=== PATIENT | male | born 1935 | race Caucasian/White ===

== ENCOUNTER 2020-02-02 08:00 | Outpatient (CLI) | payer MEDICARE ==
--- NOTE | 2020-02-02 19:57 | XRAY Report ---
PROCEDURE: Skull 2 View INDICATIONS: CONTUSION OF OTHER PART OF HEAD TECHNIQUE: 3 view(s) of the skull acquired. COMPARISON: None FINDINGS: Bones: No fractures. No suspicious bony lesions. Visualized sinuses appear clear. Soft tissues: No soft tissue calcifications. No suspicious soft tissue densities. IMPRESSION: No fracture or underlying foreign body. Reviewed by: Carey May MD on 02/02/2020 7:56 PM PDT Approved by: Carey May MD on 02/02/2020 7:56 PM PDT Station ID: [id number]
== END 2020-02-02 23:59 | disposition home or self-care (01) ==
LOC: DI.S 08:00
PROVIDERS: ATTEND Physician Assistant Medical
DX: S00.83XA Contusion of other part of head, initial encounter (principal)
CPT/HCPCS: 70250

== ENCOUNTER 2020-02-02 17:15 | Outpatient (CLI) | payer MEDICARE | END 2020-02-02 17:16 | disposition EMS.NT | LOC: EMS 17:15 | PROVIDERS: ATTEND Surgery | DX: S01.81XA Laceration without foreign body of other part of head, initial encounter (principal); W10.8XXA Fall (on) (from) other stairs and steps, initial encounter; Y92.511 Restaurant or cafe as the place of occurrence of the external cause ==

== ENCOUNTER 2021-01-28 07:00 | Outpatient (CLI) | payer MEDICARE ==
[2021-01-28 19:54] LABS: BILIRUBIN,URINE NEGATIVE (NEGATIVE); GLUCOSE, URINE (UA) NEGATIVE (NEGATIVE); KETONES,URINE (UA) NEGATIVE (NEGATIVE); LEUKOCYTE ESTERASE, URINE NEGATIVE (NEGATIVE); NITRITE,URINE NEGATIVE (NEGATIVE); OCCULT BLOOD,URINE NEGATIVE (NEGATIVE); PROTEIN,URINE NEGATIVE (NEGATIVE); UROBILINOGEN,URINE 0.2 (NORMAL) E.U./dL (NORMAL)
[2021-01-28 20:01] LABS: BACTERIA,URINE None Seen /HPF (None Seen); CLARITY,URINE CLEAR (CLEAR); RBC,URINE 0-5 /HPF (0-5); SQUAMOUS EPITHELIAL CELL,UR RARE Squamous (<= Few); WBC,URINE 0-3 /HPF (0-3)
== END 2021-01-28 23:59 | disposition home or self-care (01) ==
LOC: LAB 07:00
PROVIDERS: ATTEND Physician Assistant Medical
DX: R30.0 Dysuria (principal)
CPT/HCPCS: 81001; 87086

== ENCOUNTER 2022-12-14 08:56 | Emergency (ER) | payer MEDICARE ==
[2022-12-14 09:15] VITALS: BP 134/62; O2SAT 99
--- OUTSIDE RECORDS SUMMARY | 2022-12-14 09:34 | EXTERNAL MEDICAL SUMMARY RPT | Continuity of Care Document ---
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 Name Role Phone Unavailable Unavailable Unavailable Karen Ramesh, Dev Unavailable Unavailable Medications date description facility 2022-12-05 00:00 vitamins a,c,f-uoca-znmeey [facility] 2022-12-08 00:00 vitamins a,c,z-wjqt-rhoytq [facility] 2022-12-05 00:00 vitamins a,c,b-vohv-kahuuu [facility] 2022-12-08 00:00 vitamins a,c,o-fjuz-zyktfs [facility] 2022-12-05 00:00 vitamins a,c,f-dzcz-wtbnti [facility] 2022-12-08 00:00 vitamins a,c,d-zrrj-fbzacb [facility] 2022-12-05 00:00 methocarbamol [facility] Problems date description facility 2022-12-05 00:00 Strain of neck muscle [facility] 2022-12-05 00:00 Neck sprain [facility] 2022-12-05 00:00 Strain of muscle, fa scia and tendon at neck level, initial encounter [facility] Procedures date description facility 2022-12-05 00:00 Visit Code Hold [facility] [place] Social History date description facility 2022-12-05 00:00 Former smoker [facility] [place] Vital Signs date measurement value units 2022-12-05 00:00 BMI 26.10 kg/m2 2022-12-05 00:00 BP_diastolic 55 mmHg 2022-12-05 00:00 BP_systolic 107 mmHg 2022-12-05 00:00 heart_rate 61 /min 2022-12-05 00:00 height_metric 177.8 cm 2022-12-05 00:00 height_standard 70 in 2022-12-05 00:00 respiration_rate 15 /min 2022-12-05 00:00 temperature_metric 36.22 C 2022-12-05 00:00 temperature_standard 97.2 F 2022-12-05 00:00 weight_metric 82.21 kg 2022-12-05 00:00 weight_standard 181.25 lb
--- NOTE | 2022-12-14 09:44 | ED Physician Documentation ---
PD HPI SKIN - Stated complaint Stated Complaint: RASH ON FACE - Chief complaint Chief Complaint: General - History obtained from History obtained from: Patient - Additional information Additional information: Patient is an 87-year-old male presenting for evaluation of a rash to his face that has been there for the past 3 days. Patient reports that has been itchy and he has developed areas of crusting. He reports always having a little bit of a rash and has been told by his associate professor of law 2 to 3 months ago to use a shampoo with ketoconazole and to let this run over his face which she tried but states that it was not improving. He denies fever. No pain. He has tried Benadryl ointment also without any improvement. Review of Systems Constitutional: denies: Fever Cardiac: denies: Chest pain / pressure Respiratory: denies: Dyspnea Skin: reports: Rash PD PAST MEDICAL HISTORY - Past Medical History Cardiovascular: High cholesterol, Coronary artery disease : Benign prostate hypertrophy Other Past Medical History: insomia - Past Surgical History Past Surgical History: Yes Cardiovascular: Coronary stent - Present Medications Home Medications: Ambulatory Orders Medication Instructions Recorded Confirmed Fluticasone [Flonase] 1 sprays FILIBERTO BID PRN 12/14/22 12/14/22 Mupirocin 2% Oint [Bactroban 2% 1 applic TOP TID 5 Days #50 gm 12/14/22 Oint] Nortriptyline HCl [Pamelor] 75 mg PO DAILY 12/14/22 12/14/22 Sildenafil Citrate [Sildenafil] 20 mg PO DAILY PRN 12/14/22 12/14/22 Simvastatin [Zocor] 80 mg PO DAILY 12/14/22 12/14/22 Tamsulosin [Flomax] 0.4 mg PO DAILY 12/14/22 12/14/22 cephALEXin [Keflex] 500 mg PO Q6H #28 cap 12/14/22 methocarbamoL [Methocarbamol] 750 mg PO Q6H PRN 12/14/22 12/14/22 - Allergies Allergies/Adverse Reactions: Allergies Allergy/AdvReac Type Severity Reaction Status Date / Time No Known Drug Allergies Allergy Verified 12/14/22 09:12 - Social History Does the pt smoke?: No Smoking Status: Former smoker Does the pt drink ETOH?: Yes ETOH Use: Wine Does the pt have substance abuse?: No PD ED PE NORMAL - General General: Alert and oriented X 3, No acute distress, Well developed/nourished - HEENT HEENT: Atraumatic, PERRL, Moist mucous membranes, Pharynx benign - Neck Neck: Supple, no meningeal sign - Cardiac Cardiac: RRR - Respiratory Respiratory: No respiratory distress, Clear bilaterally - Derm Derm: Other (Erythema to forehead, tip of nose, upper lip/perioral area, chin with areas of honey colored crusting) - Neuro Neuro: Normal speech Results - Vitals Vitals: Vital Signs - 24 hr 12/14/22 09:08 Temperature 36.7 C Heart Rate 75 Respiratory 16 Rate Blood Pressure 134/62 H O2 Saturation 99 Oxygen O2 Source Room air PD Medical Decision Making - ED course ED course: Patient presenting for evaluation of a rash to his face. Patient presenting for evaluation of a rash to his face. He is well-appearing, nontoxic, afebrile with no SIRS criteria. On exam rash is concerning for impetigo. Discussed options for treatment. Patient reports having a concert he needs to be in on Thursday. Due to diffuse areas of involvement on his face will prescribe mupirocin as well as Keflex.Patient counseled on need for follow-up with his PCP or associate professor of law. He is also advised on concerning symptoms to return for. Departure - Departure Disposition: 01 Home, Self Care Clinical Impression: Impetigo Condition: Stable Instructions: Impetigo Follow-Up: Cholo Chapin [Physician No Access] - Prescriptions: Mupirocin 2% Oint [Bactroban 2% Oint] 1 applic TOP TID 5 Days #50 gm cephALEXin [Keflex] 500 mg PO Q6H #28 cap Comments: I believe your rash is related to an infection called impetigo. I am sending prescriptions for a topical and oral antibiotic to [facility] in [place]. Please make sure to use these antibiotics as directed. I would also recommend follow- up with your associate professor of law or primary care provider. If you develop worsening symptoms such as increased redness, swelling, fevers or have any new concerns please return to the emergency department. Forms: PCP List Discharge Date/Time: 12/14/22 09:53
== END 2022-12-14 09:53 | disposition home or self-care (01) ==
LOC: ED 08:56
DX: L01.00 Impetigo, unspecified (principal); Z87.891 Personal history of nicotine dependence
CPT/HCPCS: 99282; 99283

== ENCOUNTER 2023-04-14 09:50 | Outpatient (CLI) | payer MEDICARE ==
[2023-04-14 10:02] LABS: BASOPHILS % (AUTO) 0.4 %; EOSINOPHILS # (AUTO) 0.2 10^3/uL (0.0-0.7); EOSINOPHILS % (AUTO) 2.2 %; HCT - HEMATOCRIT 39.7 % (42.0-52.0); HGB - HEMOGLOBIN 12.7 g/dL (14.0-18.0); LYMPHOCYTES # (AUTO) 1.1 10^3/uL (1.5-3.5); LYMPHOCYTES % (AUTO) 15.4 %; MEAN CORPUSCULAR HEMOGLOBIN 30.8 pg (27.0-31.0); MEAN CORPUSCULAR VOLUME 96.4 fL (80.0-94.0); MEAN PLATELET VOLUME 9.6 fL (7.4-11.4); MONOCYTES # (AUTO) 0.6 10^3/uL (0.0-1.0); NEUTROPHILS # (AUTO) 5.4 10^3/uL (1.5-6.6); NEUTROPHILS % (AUTO) 73.7 %; PLT - PLATELET COUNT 236 10^3/uL (130-450); RED BLOOD COUNT 4.12 10^6/uL (4.70-6.10); RED CELL DISTRIBUTION WIDTH 13.2 % (12.0-15.0); WHITE BLOOD COUNT 7.3 x10^3/uL (4.8-10.8)
[2023-04-14 10:27] LABS: ALBUMIN 3.9 g/dL (3.2-5.5); ALBUMIN/GLOBULIN RATIO 1.3 (1.0-2.2); BILIRUBIN,TOTAL 0.7 mg/dL (0.2-1.0); CALCIUM 9.1 mg/dL (8.5-10.3); CREATININE 1.1 mg/dL (0.6-1.3); CRP - C-REACTIVE PROTEIN 2.2 mg/dL (<0.5); POTASSIUM 4.2 mmol/L (3.5-4.5); TOTAL PROTEIN 6.8 g/dL (6.4-8.9)
== END 2023-04-14 09:51 | disposition home or self-care (01) ==
LOC: LAB 09:50
PROVIDERS: ATTEND Registered Nurse
DX: R10.11 Right upper quadrant pain (principal); K21.9 Gastro-esophageal reflux disease without esophagitis
CPT/HCPCS: 36415; 80053; 83690; 85025; 86140

== ENCOUNTER 2023-04-23 13:47 | Outpatient (CLI) | payer MEDICARE ==
--- NOTE | 2023-04-23 19:30 | CT Report ---
PROCEDURE: ABDOMEN/PELVIS WO INDICATIONS: RIGHT UPPER QUAD PAIN, FLANK PAIN TECHNIQUE: A CT scan of the abdomen and pelvis was performed without the use of intravenous contrast. Oral contr ast was administered. Images were recorded and evaluated at appropriate window settings. Reformats: c oronal and sagittal. For radiation dose reduction, the following was used: automated exposure control , adjustment of mA and/or kV according to patient size. COMPARISON: None. FINDINGS: Image quality: Diagnostic. Lung bases and heart: Lung bases are clear. Heart size is normal. Mild atherosclerotic calcifications of the coronary arteries. Liver: No solid mass. Gallbladder and biliary tree: No radiopaque stones or wall thickening. No biliary dilation. Spleen: No splenomegaly. Pancreas: No pancreatic ductal dilation. No peripancreatic inflammation. Adrenals: No adrenal nodule. Kidneys and ureters: No hydronephrosis. No renal cystic lesion which requires follow up. No solid mas s. Bowel and peritoneum: Visualized stomach appears unremarkable. There are small hiatal hernia. No evid ence for small bowel obstruction. Moderate fecal material seen throughout the colon. Colonic divertic ulosis without acute diverticulitis. There is a ill-defined, irregular, spiculated/stellate mass chanelle uring approximately 6.1 x 6.2 x 7.9 cm noted in the central mesentery with associated mesenteric codey opathy and desmoid reaction. Coarse calcifications are noted internally. There appears to be tetherin g of the adjacent small bowel without evidence for obstruction. This comes in close proximity to the pancreatic head and neck without definite invasion. There is associated free fluid in the lower abdom en/pelvis. Lymph nodes: No central or retroperitoneal adenopathy. Vessels: No infrarenal aortic aneurysm. Moderate atherosclerotic vascular calcifications. PELVIS Reproductive organs: Unremarkable. Bladder: No wall thickness, accounting for underdistention. Pelvic lymph nodes: No pelvic adenopathy by size criteria. Bones: No aggressive osseous abnormality. Multilevel spondylosis of the imaged spine. No acute compre ssion fractures. Other: No significant ventral or inguinal hernia. IMPRESSION: Irregular, spiculated mesenteric mass measuring 6.1 x 6.2 x 7.9 cm with associated desmoid reaction a nd mesenteric adenopathy. Tethering of the adjacent small bowel without bowel obstruction. Immediatel y adjacent to the pancreatic head and neck without evidence for radha invasion. 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 Other consideration include sclerosing mesenteritis. Otherwise, no acute abno rmalities identified in the abdomen or pelvis. Reviewed by: Navid Cobian MD on 04/23/2023 7:28 PM PST Approved by: Navid Cobian MD on 04/23/2023 7:28 PM PST Station ID: [id number]
== END 2023-04-23 13:48 | disposition home or self-care (01) ==
LOC: DI 13:47
PROVIDERS: ATTEND Physician Assistant Medical
DX: R19.09 Other intra-abdominal and pelvic swelling, mass and lump (principal); R10.11 Right upper quadrant pain

== ENCOUNTER 2023-05-06 10:16 | Emergency (ER) | payer MEDICARE ==
--- NOTE | 2023-05-06 12:01 | ED Physician Documentation ---
PD HPI ABD PAIN - Stated complaint Stated Complaint: GI - Chief complaint Chief Complaint: Abd Pain - History obtained from History obtained from: Patient - Additional information Additional information: Patient is an 88-year-old male presenting for evaluation of difficulty with bowel movements for the past 5 days. He was diagnosed with abdominal mass at the end of March and is awaiting a referral for a biopsy through [facility].He has tried MiraLAX, Colace and an enema last night without any improvement. He has had 3 doses of MiraLAX over the past 5 days. He reports no nausea or vomiting. He is tolerating p.o. He is passing gas. Denies history of prior abdominal surgeries. Reports a dull discomfort in the lower abdomen and feeling like he has stool in the rectum.Patient called his primary care provider today regarding his constipation was told to come to the emergency department for evaluation. Denies fever, chest pain or shortness of air. Review of Systems Constitutional: denies: Fever Cardiac: denies: Chest pain / pressure Respiratory: denies: Dyspnea GI: reports: Abdominal Pain, Constipation. denies: Nausea, Vomiting : denies: Dysuria PD PAST MEDICAL HISTORY - Past Medical History Past Medical History: Yes Cardiovascular: High cholesterol, Coronary artery disease : Benign prostate hypertrophy - Past Surgical History Past Surgical History: Yes Cardiovascular: Coronary stent - Present Medications Home Medications: Ambulatory Orders Medication Instructions Recorded Confirmed Nortriptyline HCl [Pamelor] 75 mg PO DAILY 12/14/22 05/06/23 Sildenafil Citrate [Sildenafil] 100 mg PO DAILY PRN 12/14/22 05/06/23 Simvastatin [Zocor] 80 mg PO DAILY 12/14/22 05/06/23 Tamsulosin [Flomax] 0.4 mg PO DAILY 12/14/22 05/06/23 Aspirin [[place] Aspirin] 81 mg PO DAILY 05/06/23 05/06/23 Magnesium Citrate [Citrate of 296 ml PO DAILY PRN #296 ml 05/06/23 Magnesia] Pantoprazole [Protonix] 40 mg PO DAILY 05/06/23 05/06/23 - Allergies Allergies/Adverse Reactions: Allergies Allergy/AdvReac Type Severity Reaction Status Date / Time No Known Drug Allergies Allergy Verified 05/06/23 10:23 - Social History Does the pt smoke?: No Smoking Status: Never smoker Does the pt drink ETOH?: Yes Does the pt have substance abuse?: No PD ED PE NORMAL - General General: Alert and oriented X 3, No acute distress, Well developed/nourished - HEENT HEENT: Atraumatic, Moist mucous membranes, Pharynx benign - Neck Neck: Supple, no meningeal sign - Cardiac Cardiac: RRR, No murmur - Respiratory Respiratory: No respiratory distress, Clear bilaterally - Abdomen Abdomen: Normal bowel sounds, Soft, Non tender, Non distended - Rectal Rectal: Other (Chaperoned by Queta, no stool in rectum) - Derm Derm: Warm and dry - Neuro Neuro: Normal speech Results - Vitals Vitals: Vital Signs - 24 hr 05/06/23 05/06/23 05/06/23 10:19 12:23 16:07 Temperature 36.1 C L Heart Rate 71 72 83 Respiratory 15 14 18 Rate Blood Pressure 128/49 L 132/84 H 144/70 H O2 Saturation 100 98 98 Oxygen O2 Source Room air - Labs Labs: Laboratory Tests 05/06/23 05/06/23 11:45 11:45 WBC 6.8 RBC 3.78 L Hgb 11.8 L Hct 36.5 L MCV 96.6 H MCH 31.2 H MCHC 32.3 RDW 12.5 Plt Count 245 MPV 10.3 Neut # (Auto) 5.3 Lymph # (Auto) 0.7 L [place] # (Auto) 0.6 Eos # (Auto) 0.1 Baso # (Auto) 0.0 Absolute Nucleated RBC 0.00 Nucleated RBC % 0.0 Sodium 139 Potassium 4.3 Chloride 106 Carbon Dioxide 26 Anion Gap 7.0 BUN 20 Creatinine 0.9 Estimated GFR (MDRD) 79 L Glucose 116 H Calcium 8.8 Total Bilirubin 0.5 AST 21 ALT 12 Alkaline Phosphatase 82 Total Protein 6.5 Albumin 3.8 Globulin 2.7 Albumin/Globulin Ratio 1.4 Lipase 183 H PD Medical Decision Making - ED course Complexity details: reviewed results, re-evaluated patient, d/w patient ED course: Patient is an 88-year-old male with recent diagnosis of an abdominal mass that is awaiting further workup presenting for evaluation of constipation for the last 5 days. His abdominal exam is benign but he does report having a discomfort in the lower abdomen that makes him feel like he needs to have a bowel movement. There is no stool in the rectum. Therefore based on this history I did obtain labs and imaging. Imaging shows interval increase in the size of the mass but no signs of a bowel obstruction. Again patient's abdominal exam here is benign. He has tried MiraLAX, Colace, and enema without improvement at home. Will give trial of magnesium citrate. He is advised that his mass has increased and again that he needs close follow-up to determine the next steps. He was in touch with his PCP today who was planning on following back up on the referral that she had already placed. Patient is counseled on concerning symptoms to return for. 1515 - Updated the patient that there was a delay in CT being read. I spoke to the radiologist and apparently there was an issue with images being transferred from the tech to the radiology screening. Radiologist is working on getting this read to soon as possible. I updated the patient regarding the delay. He is resting comfortably with no complaints. 1540 - I spoke with the reading radiologist, Dr. Isaacs. I asked him to look at the patient's CT scan from 1228 as does not appear that today's images were compared with recent CT scan. Asked for comparison between the 2 images to see what was different today as the two reports differ in their descriptions of the mass. He states that the only thing different today is that to the mass is slightly larger. Departure - Departure Disposition: 01 Home, Self Care Clinical Impression: Constipation, Abdominal mass Condition: Stable Instructions: ED Constipation Follow-Up: Gaviota De Jesus MD [Primary Care Provider] - Prescriptions: Magnesium Citrate [Citrate of Magnesia] 296 ml PO DAILY PRN #296 ml PRN Reason: Constipation Comments: Your CT scan again shows your abdominal mass which is slightly increased in size. Please call Dr. De Jesus's office tomorrow to we can follow-up on your referral as you do need further evaluation of this mass to determine the next steps. At this time there is no signs of a bowel obstruction. I have sent a prescription for magnesium citrate to [facility] in [place]. Continue with the MiraLAX and Colace as needed for constipation. Return if you develop symptoms such as abdominal pain, vomiting. Forms: PCP List Discharge Date/Time: 05/06/23 16:16
[2023-05-06 12:18] LABS: ALBUMIN 3.8 g/dL (3.2-5.5); BASOPHILS % (AUTO) 0.6 %; EOSINOPHILS # (AUTO) 0.1 10^3/uL (0.0-0.7); EOSINOPHILS % (AUTO) 1.5 %; HCT - HEMATOCRIT 36.5 % (42.0-52.0); HGB - HEMOGLOBIN 11.8 g/dL (14.0-18.0); LYMPHOCYTES # (AUTO) 0.7 10^3/uL (1.5-3.5); LYMPHOCYTES % (AUTO) 10.4 %; MEAN CORPUSCULAR HEMOGLOBIN 31.2 pg (27.0-31.0); MEAN CORPUSCULAR HGB CONC 32.3 g/dL (32.0-36.0); MEAN CORPUSCULAR VOLUME 96.6 fL (80.0-94.0); MEAN PLATELET VOLUME 10.3 fL (7.4-11.4); MONOCYTES # (AUTO) 0.6 10^3/uL (0.0-1.0); MONOCYTES % (AUTO) 8.7 %; NEUTROPHILS # (AUTO) 5.3 10^3/uL (1.5-6.6); NEUTROPHILS % (AUTO) 78.4 %; PLT - PLATELET COUNT 245 10^3/uL (130-450); RED BLOOD COUNT 3.78 10^6/uL (4.70-6.10); RED CELL DISTRIBUTION WIDTH 12.5 % (12.0-15.0); WHITE BLOOD COUNT 6.8 x10^3/uL (4.8-10.8)
[2023-05-06 12:19] LABS: ALBUMIN/GLOBULIN RATIO 1.4 (1.0-2.2); BILIRUBIN,TOTAL 0.5 mg/dL (0.2-1.0); CALCIUM 8.8 mg/dL (8.5-10.3); CREATININE 0.9 mg/dL (0.6-1.3); POTASSIUM 4.3 mmol/L (3.5-4.5); TOTAL PROTEIN 6.5 g/dL (6.4-8.9)
[2023-05-06] MEDS ORDERED: iohexoL-300 100 ML VIAL ONE (12:42)
[2023-05-06] MEDS: SODIUM CHLORIDE 0.9% 1,000 ML IV STA (13:00)
[2023-05-06] MEDS: iohexoL-300 100 ML VIAL IVP ONE (13:37)
[2023-05-06 13:51] VITALS: O2SAT 98
--- NOTE | 2023-05-06 15:27 | CT Report ---
PROCEDURE: Abdomen/Pelvis W INDICATIONS: abd mass/pain/constipation CONTRAST: Omni 300 100ml TECHNIQUE: After the administration of intravenous contrast, a CT scan of the abdomen and pelvis was performed. Images were recorded and evaluated at appropriate window settings. Reformats: coronal and sagittal. F or radiation dose reduction, the following was used: automated exposure control, adjustment of mA and /or kV according to patient size. COMPARISON: None. FINDINGS: Image quality: Excellent. Lung bases and heart: Unremarkable. Liver: No solid mass. Gallbladder and biliary tree: Within normal limits Spleen: No splenomegaly. Pancreas: No pancreatic ductal dilation. There is an exophytic low density mass involving the pancrea tic neck and uncinate process, measuring roughly 80 mm transverse by 80 mm craniocaudal by 16 mm ante roposterior. The mass encases the confluence of the superior mesenteric vein and portal vein, and occ ludes the superior mesenteric vein. The mass completely encases the superior mesenteric artery as wel l as several of its proximal branches. The mass partially encases the third portion of the duodenum. Adrenals: No adrenal nodule. Kidneys and ureters: No hydronephrosis. No renal cystic lesion which requires follow up. No solid mas s. Bowel and peritoneum: No bowel distension. Small amount of free fluid in the pelvis is present. Lymph nodes: Multiple pathologically enlarged lymph nodes within the mesenteric root are present, pre dominantly surrounding the above-described mass. Vessels: No infrarenal aortic aneurysm. Mesenteric-portal collateral vessels are present. PELVIS Reproductive organs: Unremarkable. Bladder: No abnormal wall thickening, accounting for underdistention. Pelvic lymph nodes: No pelvic adenopathy by size criteria. Bones: No aggressive osseous abnormality. Other: No significant ventral or inguinal hernia. IMPRESSION: 1. 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 2. Small amount of ascites. 3. Mesenteric joellen metastases. Reviewed by: Trish Bautista MD on 05/06/2023 3:26 PM PST Approved by: Trish Bautista MD on 05/06/2023 3:26 PM PST Station ID: [id number]
[2023-05-06 16:14] VITALS: BP 144/70
== END 2023-05-06 16:16 | disposition home or self-care (01) ==
LOC: ED 10:16
DX: K59.00 Constipation, unspecified (principal); R19.00 Intra-abdominal and pelvic swelling, mass and lump, unspecified site
CPT/HCPCS: 36415; 74177; 80053; 83690; 85025; 99284; Q9967

== ENCOUNTER 2023-05-07 23:04 | Outpatient (CLI) | payer MEDICARE | END 2023-05-07 23:05 | disposition critical access hospital (66) | LOC: EMS 23:04 | DX: R11.2 Nausea with vomiting, unspecified (principal); M54.6 Pain in thoracic spine | CPT/HCPCS: A0425; A0427 ==

== ENCOUNTER 2023-05-07 23:39 | Emergency (ER) | payer MEDICARE ==
[2023-05-07] MEDS ORDERED: SODIUM CHLORIDE 0.9% 500 ML IV STA (23:44)
[2023-05-08 00:02] LABS: BASOPHILS % (AUTO) 0.4 %; EOSINOPHILS # (AUTO) 0.1 10^3/uL (0.0-0.7); EOSINOPHILS % (AUTO) 0.7 %; HCT - HEMATOCRIT 39.1 % (42.0-52.0); HGB - HEMOGLOBIN 12.6 g/dL (14.0-18.0); LYMPHOCYTES # (AUTO) 0.9 10^3/uL (1.5-3.5); LYMPHOCYTES % (AUTO) 10.6 %; MEAN CORPUSCULAR HEMOGLOBIN 30.8 pg (27.0-31.0); MEAN CORPUSCULAR HGB CONC 32.2 g/dL (32.0-36.0); MEAN CORPUSCULAR VOLUME 95.6 fL (80.0-94.0); MEAN PLATELET VOLUME 9.6 fL (7.4-11.4); MONOCYTES # (AUTO) 0.6 10^3/uL (0.0-1.0); MONOCYTES % (AUTO) 7.4 %; NEUTROPHILS # (AUTO) 6.5 10^3/uL (1.5-6.6); NEUTROPHILS % (AUTO) 80.7 %; PLT - PLATELET COUNT 268 10^3/uL (130-450); RED BLOOD COUNT 4.09 10^6/uL (4.70-6.10); RED CELL DISTRIBUTION WIDTH 12.5 % (12.0-15.0); WHITE BLOOD COUNT 8.1 x10^3/uL (4.8-10.8)
[2023-05-08] MEDS ORDERED: ONDANSETRON 4 MG/2 ML VIAL IVP STA (00:13)
[2023-05-08] MEDS ORDERED: FAMOTIDINE 20 MG/2 ML VIAL IVP STA (00:13)
--- NOTE | 2023-05-08 00:13 | ED Physician Documentation ---
History of Present Illness - Stated complaint Stated Complaint: N/V - Chief complaint Chief Complaint: General - History obtained from History obtained from: Patient - Additonal information Additional information: 88yM with pmh htn, CT s/p LAD stent, p/w several episodes of nbnb n/v since 6pm. also with subjective chills. denies diarrhea or abdominal pain. denies eating abnormal or questionable food. unsure about sick contacts. Review of Systems Constitutional: reports: Chills, Myalgias. denies: Fever Throat: denies: Sore throat Cardiac: denies: Chest pain / pressure Respiratory: denies: Dyspnea GI: reports: Nausea, Vomiting. denies: Abdominal Pain PD PAST MEDICAL HISTORY - Past Medical History Past Medical History: Yes Cardiovascular: High cholesterol, Coronary artery disease : Benign prostate hypertrophy - Past Surgical History Past Surgical History: Yes Cardiovascular: Coronary stent - Present Medications Home Medications: Ambulatory Orders Medication Instructions Recorded Confirmed Nortriptyline HCl [Pamelor] 75 mg PO DAILY 12/14/22 05/07/23 Sildenafil Citrate [Sildenafil] 100 mg PO DAILY PRN 12/14/22 05/07/23 Simvastatin [Zocor] 80 mg PO DAILY 12/14/22 05/07/23 Tamsulosin [Flomax] 0.4 mg PO DAILY 12/14/22 05/07/23 Aspirin [[place] Aspirin] 81 mg PO DAILY 05/06/23 05/07/23 Magnesium Citrate [Citrate of 296 ml PO DAILY PRN #296 ml 05/06/23 05/07/23 Magnesia] Pantoprazole [Protonix] 40 mg PO DAILY 05/06/23 05/07/23 Ondansetron Odt [Zofran Odt] 4 mg TL Q6H PRN #10 tablet 05/08/23 - Allergies Allergies/Adverse Reactions: Allergies Allergy/AdvReac Type Severity Reaction Status Date / Time No Known Drug Allergies Allergy Verified 05/07/23 23:45 - Social History Does the pt smoke?: No Smoking Status: Never smoker Does the pt drink ETOH?: Yes Does the pt have substance abuse?: No PD ED PE NORMAL - Vitals Vital signs reviewed: Yes - General General: Alert and oriented X 3, No acute distress, Well developed/nourished - HEENT HEENT: Atraumatic, PERRL, EOMI - Neck Neck: Supple, no meningeal sign - Cardiac Cardiac: RRR - Respiratory Respiratory: No respiratory distress, Clear bilaterally - Abdomen Abdomen: Non tender (No guarding or rebound), Other (Discomfort in epigastrium to palpation) - Back Back: No CVA TTP - Derm Derm: Normal color, Warm and dry - Extremities Extremities: No deformity, No edema Results - Vitals Vitals: Vital Signs - 24 hr 05/07/23 05/08/23 23:48 01:41 Temperature 36.6 C Heart Rate 74 87 Respiratory 14 17 Rate Blood Pressure 182/88 H 147/70 H O2 Saturation 100 98 Oxygen O2 Source Room air - EKG (time done) 0131 EKG releavant findings:: EKG personally interpreted by author of this note. Relevant findings are: Rate: Rate (enter#) (73) Rhythm: NSR [place]: Normal Intervals: Normal [place] QRS: Poor R wave progression Ischemia: Normal ST segments - Labs Labs: Laboratory Tests 05/07/23 05/07/23 05/08/23 23:58 23:58 01:07 WBC 8.1 RBC 4.09 L Hgb 12.6 L Hct 39.1 L MCV 95.6 H MCH 30.8 MCHC 32.2 RDW 12.5 Plt Count 268 MPV 9.6 Neut # (Auto) 6.5 Lymph # (Auto) 0.9 L [place] # (Auto) 0.6 Eos # (Auto) 0.1 Baso # (Auto) 0.0 Absolute Nucleated RBC 0.00 Nucleated RBC % 0.0 Sodium 142 Potassium 3.7 Chloride 100 L Carbon Dioxide 32 Anion Gap 10.0 BUN 18 Creatinine 1.1 Estimated GFR (MDRD) 63 L Glucose 138 H Calcium 9.5 Total Bilirubin 0.6 AST 21 ALT 14 Alkaline Phosphatase 91 Total Protein 6.9 Albumin 4.1 Globulin 2.8 Albumin/Globulin Ratio 1.5 Lipase 720 H Urine Color YELLOW Urine Clarity HAZY Urine pH 8.5 H Ur Specific [place] 1.015 Urine Protein 30 H Urine Glucose (UA) NEGATIVE Urine Ketones 15 H Urine Occult Blood NEGATIVE Urine Nitrite NEGATIVE Urine Bilirubin NEGATIVE Urine Urobilinogen 0.2 (NORMAL) Ur Leukocyte Esterase NEGATIVE Urine RBC 0-5 Urine WBC 0-3 Ur Squamous Epith Cells RARE Squamous Amorphous Sediment Few Urine Bacteria Rare Ur Microscopic Review INDICATED Urine Culture Comments NOT INDICATED PD Medical Decision Making - ED course ED course: 88-year-old man presents to the emergency department with nonbloody nonbilious nausea and vomiting starting this evening with associated chills. Suspect viral gastroenteritis versus food poisoning. ekg will be obtained due to remote possibility of cardiac etiology - no stemi. cbc, abdominal panel, ua unremark able. IVF, zofran and pepcid provided with relief. return precautions given. plan to f/u with pcp. zofran rx sent to pharmacy. Departure - Departure Disposition: Home, Self Care Clinical Impression: Nausea and vomiting Condition: Stable Instructions: ED Nausea Vomiting Prescriptions: Ondansetron Odt [Zofran Odt] 4 mg TL Q6H PRN #10 tablet PRN Reason: Nausea / Vomiting Comments: You were seen in the emergency department for nausea and vomiting. You received pepcid and zofran through your IV as well as IV fluids. Electronic prescription for Zofran, an antinausea medicine was sent to [facility] in [place]. Please follow-up with your primary care provider and return to the emergency department if you have any new or worsening symptoms or other concerns. Forms: PCP List
[2023-05-08 00:36] LABS: POTASSIUM 3.7 mmol/L (3.5-4.5)
[2023-05-08 00:37] LABS: CALCIUM 9.5 mg/dL (8.5-10.3); CREATININE 1.1 mg/dL (0.6-1.3)
[2023-05-08 00:38] LABS: BILIRUBIN,TOTAL 0.6 mg/dL (0.2-1.0)
[2023-05-08 00:39] LABS: ALBUMIN 4.1 g/dL (3.2-5.5); ALBUMIN/GLOBULIN RATIO 1.5 (1.0-2.2); TOTAL PROTEIN 6.9 g/dL (6.4-8.9)
[2023-05-08 01:13] LABS: BILIRUBIN,URINE NEGATIVE (NEGATIVE); GLUCOSE, URINE (UA) NEGATIVE (NEGATIVE); KETONES,URINE (UA) 15 mg/dL (NEGATIVE); LEUKOCYTE ESTERASE, URINE NEGATIVE (NEGATIVE); NITRITE,URINE NEGATIVE (NEGATIVE); OCCULT BLOOD,URINE NEGATIVE (NEGATIVE); PH,URINE 8.5 PH (5.0-7.5); PROTEIN,URINE 30 mg/dL (NEGATIVE); UROBILINOGEN,URINE 0.2 (NORMAL) E.U./dL (NORMAL)
[2023-05-08 01:28] LABS: AMORPHOUS SEDIMENT,UR Few /LPF; BACTERIA,URINE Rare /HPF (None Seen); CLARITY,URINE HAZY (CLEAR); RBC,URINE 0-5 /HPF (0-5); SQUAMOUS EPITHELIAL CELL,UR RARE Squamous (<= Few); WBC,URINE 0-3 /HPF (0-3)
[2023-05-08 02:44] VITALS: BP 139/79; O2SAT 95
== END 2023-05-08 02:35 | disposition home or self-care (01) ==
LOC: EDUNIT# → ED 05-08
DX: R11.2 Nausea with vomiting, unspecified (principal)
CPT/HCPCS: 36415; 80053; 81001; 81003; 83690; 85025; 87086; 93005; 96374; 99284

== ENCOUNTER 2023-06-24 09:56 | Outpatient (CLI) | payer MEDICARE ==
[2023-06-24] MEDS ORDERED: iohexoL-300 100 ML VIAL ONE (10:00)
[2023-06-24 10:25] LABS: BASOPHILS # (AUTO) 0.1 10^3/uL (0.0-0.1); BASOPHILS % (AUTO) 0.6 %; EOSINOPHILS # (AUTO) 0.2 10^3/uL (0.0-0.7); EOSINOPHILS % (AUTO) 1.8 %; HCT - HEMATOCRIT 33.6 % (42.0-52.0); HGB - HEMOGLOBIN 11.1 g/dL (14.0-18.0); LYMPHOCYTES # (AUTO) 0.8 10^3/uL (1.5-3.5); LYMPHOCYTES % (AUTO) 10.3 %; MEAN CORPUSCULAR HEMOGLOBIN 30.1 pg (27.0-31.0); MEAN CORPUSCULAR VOLUME 91.1 fL (80.0-94.0); MEAN PLATELET VOLUME 9.6 fL (7.4-11.4); MONOCYTES # (AUTO) 0.8 10^3/uL (0.0-1.0); MONOCYTES % (AUTO) 9.2 %; NEUTROPHILS # (AUTO) 6.3 10^3/uL (1.5-6.6); NEUTROPHILS % (AUTO) 77.5 %; PLT - PLATELET COUNT 224 10^3/uL (130-450); RED BLOOD COUNT 3.69 10^6/uL (4.70-6.10); RED CELL DISTRIBUTION WIDTH 16.2 % (12.0-15.0); WHITE BLOOD COUNT 8.2 x10^3/uL (4.8-10.8)
[2023-06-24 10:58] LABS: THYROID STIMULATING HORMONE 0.7 uIU/mL (0.34-5.60)
[2023-06-24 12:16] LABS: ALBUMIN 3.5 g/dL (3.2-5.5); ALBUMIN/GLOBULIN RATIO 1.2 (1.0-2.2); BILIRUBIN,DIRECT 6.98 mg/dL (0.03-0.18); BILIRUBIN,TOTAL 11.3 mg/dL (0.2-1.0); CALCIUM 9.2 mg/dL (8.5-10.3); CREATININE 1.6 mg/dL (0.6-1.3); TOTAL PROTEIN 6.5 g/dL (6.4-8.9)
--- NOTE | 2023-06-24 14:29 | CT Report ---
PROCEDURE: Abdomen W/WO INDICATIONS: PANCREATIC MASS CONTRAST: Omni 300 100ml TECHNIQUE: 4 phase scanning was performed. After the administration of intravenous contrast, 5 mm thick section s acquired from the diaphragm to the symphysis. 5 mm coronal and sagittal reformats were acquired. For radiation dose reduction, the following was used: automated exposure control, adjustment of mA a nd/or kV according to patient size. COMPARISON: 05/06/2023 FINDINGS: Image quality: Diagnostic Lower chest: Scattered scarring and atelectasis. Liver: Unremarkable Gallbladder and biliary system: Increased dilation of the biliary system. The gallbladder is ectatic. There is abrupt biliary ductal cutoff. The proximal CBD measures up to 1.3 cm. Pancreas: Exophytic pancreatic body mass measures 7.6 x 6.6 cm (18/66), previously 6.8 x 6.3 cm using similar measurement techniques. 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 SMA encasement. Splenic artery encasement. Borderline encasement of the celiac axis otherwi se. Spleen: Nonenlarged Adrenals: No discrete nodules Kidneys: No solid mass or hydronephrosis. Cysts are present. 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 No abdominal aortic aneurysm. Borderline enlarged mesenteric lymph nodes are present, for example 16/60 measuring 1.1 cm. This was seen previo usly. Bowel and peritoneum: No bowel obstruction. Moderate fecal loading. The stomach is mildly distended. The duodenum is slightly displaced posteriorly by the exophytic pancreas mass. Body wall: Unremarkable Pelvis: Not imaged on this study Bones: There are degenerative changes. No acute or suspicious findings. IMPRESSION: Increased size of the nonresectable exophytic pancreatic body mass. Borderline-enlarged suspicious me senteric adjacent lymph nodes are seen as before. New biliary ductal dilation suspicious for obstruction. 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 Reviewed by: Jonathon Fernandez MD on 06/24/2023 2:28 PM PST Approved by: Jonathon Fernandez MD on 06/24/2023 2:28 PM PST Station ID: [id number]
[2023-06-24] MEDS: iohexoL-300 100 ML VIAL IVP ONE (15:41)
== END 2023-06-24 09:57 | disposition home or self-care (01) ==
LOC: DI 09:56
PROVIDERS: ATTEND Internal Medicine Gastroenterology
DX: K86.89 Other specified diseases of pancreas (principal); K55.059 Acute (reversible) ischemia of intestine, part and extent unspecified; E78.5 Hyperlipidemia, unspecified; R19.00 Intra-abdominal and pelvic swelling, mass and lump, unspecified site
CPT/HCPCS: 36415; 74170; 80053; 82248; 84443; 85025; Q9967

== ENCOUNTER → 2023-07-01 | Outpatient (CLI) | payer MEDICARE | LOC: PC 08:00 | PROVIDERS: ATTEND Nurse Practitioner Gerontology | DX: Z51.5 Encounter for palliative care (principal); K83.1 Obstruction of bile duct; R10.9 Unspecified abdominal pain; N17.9 Acute kidney failure, unspecified; K86.89 Other specified diseases of pancreas; Z79.891 Long term (current) use of opiate analgesic | CPT/HCPCS: 99350 ==

== ENCOUNTER 2023-07-03 11:29 | Outpatient (CLI) | payer MEDICARE ==
[2023-07-03 11:41] LABS: HCT - HEMATOCRIT 32.8 % (42.0-52.0); HGB - HEMOGLOBIN 10.1 g/dL (14.0-18.0); MEAN CORPUSCULAR HEMOGLOBIN 29.9 pg (27.0-31.0); MEAN CORPUSCULAR HGB CONC 30.8 g/dL (32.0-36.0); MEAN PLATELET VOLUME 10.5 fL (7.4-11.4); RED BLOOD COUNT 3.38 10^6/uL (4.70-6.10); RED CELL DISTRIBUTION WIDTH 15.9 % (12.0-15.0); WHITE BLOOD COUNT 10.9 x10^3/uL (4.8-10.8)
[2023-07-03 12:00] LABS: ALBUMIN 3.4 g/dL (3.2-5.5); BILIRUBIN,DIRECT 1.35 mg/dL (0.03-0.18); CALCIUM 8.7 mg/dL (8.5-10.3); CREATININE 1.2 mg/dL (0.6-1.3); POTASSIUM 4.6 mmol/L (3.5-4.5); TOTAL PROTEIN 6.1 g/dL (6.4-8.9)
== END 2023-07-03 11:30 | disposition home or self-care (01) ==
LOC: LAB 11:29
PROVIDERS: ATTEND Nurse Practitioner Gerontology
DX: K83.1 Obstruction of bile duct (principal)
CPT/HCPCS: 36415; 80048; 80076; 85027

== ENCOUNTER 2023-07-23 08:00 | Outpatient (CLI) | payer MEDICARE | END 2023-07-23 23:59 | disposition home or self-care (01) | LOC: PC 08:00 | PROVIDERS: ATTEND Nurse Practitioner Gerontology | DX: Z51.5 Encounter for palliative care (principal); C80.1 Malignant (primary) neoplasm, unspecified; C77.2 Secondary and unspecified malignant neoplasm of intra-abdominal lymph nodes; K86.89 Other specified diseases of pancreas; R11.0 Nausea; R10.9 Unspecified abdominal pain; R63.0 Anorexia; Z79.899 Other long term (current) drug therapy; Z79.891 Long term (current) use of opiate analgesic; R18.8 Other ascites; R15.2 Fecal urgency | CPT/HCPCS: 99350 ==

== ENCOUNTER 2023-07-30 08:00 | Outpatient (CLI) | payer MEDICARE | END 2023-07-30 23:59 | disposition home or self-care (01) | LOC: PC 08:00 | PROVIDERS: ATTEND Nurse Practitioner Gerontology | DX: Z51.5 Encounter for palliative care (principal); C80.1 Malignant (primary) neoplasm, unspecified; C77.2 Secondary and unspecified malignant neoplasm of intra-abdominal lymph nodes; K86.89 Other specified diseases of pancreas; R10.9 Unspecified abdominal pain; G89.29 Other chronic pain; R63.0 Anorexia; Z79.891 Long term (current) use of opiate analgesic; R18.8 Other ascites; J90 Pleural effusion, not elsewhere classified; R06.02 Shortness of breath; R53.83 Other fatigue; Z87.891 Personal history of nicotine dependence; Z71.89 Other specified counseling | CPT/HCPCS: 99349 ==

== ENCOUNTER 2023-08-05 10:34 | Emergency (ER) | payer MEDICARE ==
--- NOTE | 2023-08-05 10:51 | ED Physician Documentation ---
PD HPI ABD PAIN - Stated complaint Stated Complaint: PARACENTESIS - Chief complaint Chief Complaint: Abd Pain - History obtained from History obtained from: Patient - Additional information Additional information: 88-year-old gentleman with a relatively recent diagnosis of a pancreatic mass. The primary pathology is not yet known, could be adenocarcinoma or neuroendocrine primary. In late May he had a CT, at that time did not have any ascites but more recently, a week ago had a PET scan which did show ascites. He has become increasingly symptomatic from that and would like a paracentesis. His oncologist did call yesterday and evidently tried to get an urgent outpatient paracentesis but was unsuccessful. PD PAST MEDICAL HISTORY - Past Medical History Cardiovascular: High cholesterol, Coronary artery disease : Benign prostate hypertrophy - Past Surgical History Past Surgical History: Yes Cardiovascular: Coronary stent, Angioplasty, Other - Present Medications Home Medications: Ambulatory Orders Medication Instructions Recorded Confirmed Tamsulosin [Flomax] 0.4 mg PO DAILY 12/14/22 08/05/23 Aspirin [[place] Aspirin] 81 mg PO DAILY 05/06/23 08/05/23 Cyanocobalamin (Vitamin B-12) 1,000 mcg PO DAILY 05/12/23 08/05/23 [Vitamin B12] Fluocinonide 0.05% Cream [Lidex 1 applic TOP UD 05/12/23 08/05/23 0.05% Cream] Ketoconazole 2% Cream [Nizoral 2% 1 applic TOP UD 05/12/23 08/05/23 Cream] Omeprazole 40 mg PO DAILY 05/12/23 08/05/23 Ondansetron Odt [Zofran Odt] 8 mg TL Q6H PRN 05/12/23 08/05/23 Oxycodone HCl [Oxaydo] 5 mg PO PRN PRN 05/12/23 08/05/23 Triamcinolone Acetonide 0.1% 1 gm TP UD 05/12/23 08/05/23 [Triamcinolone Acetonide] Mirtazapine 15 mg PO DAILY 06/30/23 08/05/23 - Allergies Allergies/Adverse Reactions: Allergies Allergy/AdvReac Type Severity Reaction Status Date / Time No Known Drug Allergies Allergy Verified 08/05/23 11:14 - Social History Does the pt smoke?: No Smoking Status: Never smoker Does the pt drink ETOH?: Yes Does the pt have substance abuse?: No PD ED PE NORMAL - Vitals Vital signs reviewed: Yes - General General: Alert and oriented X 3, No acute distress - Abdomen Abdomen: Other (Distended nontender protuberant abdomen with significant ascites on bedside ultrasound.) - Neuro Neuro: Alert and oriented X 3 Results - Vitals Vitals: Vital Signs - 24 hr 08/05/23 08/05/23 10:46 11:25 Temperature 36.6 C 36.5 C Heart Rate 82 60 Respiratory 20 16 Rate Blood Pressure 157/79 H 123/67 O2 Saturation 99 100 Oxygen O2 Source Room air Procedures - Paracentesis - Major Preparation: Consent obtained, Local anesthesia Location: RLQ Technique: Z-tract, Catheter over needle Fluid: Cloudy, Sent for cytology Aftercare: No complications PD Medical Decision Making - ED course ED course: 88-year-old gentleman presents for paracentesis. 3 L paracentesis was done with symptomatic relief. Given the time course I do not suspect infection and also he is not tender. It was sent for cytology. Departure - Departure Disposition: 01 Home, Self Care Clinical Impression: Ascites Qualifiers: Ascites type: malignant Qualified Code(s): R18.0 - Malignant ascites Condition: Good Record reviewed to determine appropriate education?: Yes Instructions: ED Ascites Comments: You were seen today for symptomatic ascites probably related to your pancreatic cancer. A 3 L paracentesis was done and I am sending the fluid for cytology. That should be done in about a week and I asked the lab to copy the results to [facility]. Return for new or worsening symptoms. Forms: PCP List Discharge Date/Time: 08/05/23 11:27
[2023-08-05 11:55] VITALS: BP 123/67; O2SAT 100
== END 2023-08-05 11:27 | disposition home or self-care (01) ==
LOC: ED 10:34
DX: K86.9 Disease of pancreas, unspecified (principal); R18.0 Malignant ascites; I10 Essential (primary) hypertension
CPT/HCPCS: 49082; 99285

== ENCOUNTER 2023-08-06 08:00 | Outpatient (CLI) | payer MEDICARE | END 2023-08-06 23:59 | disposition home or self-care (01) | LOC: PC 08:00 | PROVIDERS: ATTEND Nurse Practitioner Gerontology | DX: Z51.5 Encounter for palliative care (principal); C80.1 Malignant (primary) neoplasm, unspecified; C77.2 Secondary and unspecified malignant neoplasm of intra-abdominal lymph nodes; K86.89 Other specified diseases of pancreas; G89.3 Neoplasm related pain (acute) (chronic); Z79.891 Long term (current) use of opiate analgesic; R18.8 Other ascites; J90 Pleural effusion, not elsewhere classified; R11.0 Nausea; R53.83 Other fatigue; Z87.891 Personal history of nicotine dependence; R10.9 Unspecified abdominal pain; Z71.89 Other specified counseling | CPT/HCPCS: 99350 ==

== ENCOUNTER 2023-08-06 22:21 | Emergency (ER) | payer MEDICARE ==
[2023-08-06 23:08] LABS: INR 1.2 (0.8-1.2); PT - PROTHROMBIN TIME 12.6 secs (9.9-12.6)
[2023-08-06 23:11] LABS: BASOPHILS % (AUTO) 0.4 %; EOSINOPHILS # (AUTO) 0.1 10^3/uL (0.0-0.7); EOSINOPHILS % (AUTO) 0.6 %; HCT - HEMATOCRIT 30.5 % (42.0-52.0); HGB - HEMOGLOBIN 9.5 g/dL (14.0-18.0); LYMPHOCYTES # (AUTO) 0.7 10^3/uL (1.5-3.5); LYMPHOCYTES % (AUTO) 8.6 %; MEAN CORPUSCULAR HEMOGLOBIN 30.1 pg (27.0-31.0); MEAN CORPUSCULAR HGB CONC 31.1 g/dL (32.0-36.0); MEAN CORPUSCULAR VOLUME 96.5 fL (80.0-94.0); MEAN PLATELET VOLUME 10.7 fL (7.4-11.4); MONOCYTES # (AUTO) 0.5 10^3/uL (0.0-1.0); MONOCYTES % (AUTO) 6.4 %; NEUTROPHILS # (AUTO) 6.5 10^3/uL (1.5-6.6); NEUTROPHILS % (AUTO) 83.9 %; PLT - PLATELET COUNT 232 10^3/uL (130-450); RED BLOOD COUNT 3.16 10^6/uL (4.70-6.10); RED CELL DISTRIBUTION WIDTH 15.3 % (12.0-15.0); WHITE BLOOD COUNT 7.7 x10^3/uL (4.8-10.8)
[2023-08-06 23:20] LABS: ALBUMIN 2.9 g/dL (3.2-5.5); ALBUMIN/GLOBULIN RATIO 1.1 (1.0-2.2); ALKALINE PHOSPHATASE 129 IU/L (42-121); ALT ALANINE AMINOTRANSFERASE 11 IU/L (10-60); AST ASPARTATE AMINOTRANSFERASE 21 IU/L (10-42); BILIRUBIN,TOTAL 1.2 mg/dL (0.2-1.0); BUN - BLOOD UREA NITROGEN 15 mg/dL (6-20); CALCIUM 8.5 mg/dL (8.5-10.3); CARBON DIOXIDE - CO2 23 mmol/L (21-32); CHLORIDE 106 mmol/L (101-111); CREATININE 1.1 mg/dL (0.6-1.3); GFR - MDRD 63 (>89); GLUCOSE 139 mg/dL (74-104); POTASSIUM 3.9 mmol/L (3.5-4.5); SODIUM 137 mmol/L (135-145); TOTAL PROTEIN 5.6 g/dL (6.4-8.9)
[2023-08-06 23:21] LABS: LIPASE < 10 U/L (11-82)
[2023-08-06] MEDS ORDERED: iohexoL-300 100 ML VIAL ONE (23:25)
--- NOTE | 2023-08-06 23:25 | ED Physician Documentation ---
History of Present Illness - Stated complaint Stated Complaint: ABD/BACK PX - Chief complaint Chief Complaint: Abd Pain - History obtained from History obtained from: Patient - Additonal information Additional information: 88yM with pmh pancreatic mass metastatic to local structures, recent paracentesis yesterday with 3L fluid removed, p/w persistent diffuse abdominal pain since that time refractory to home oxycodone and fentanyl patch. patient denies fever, diarrhea, n/v or urinary symptoms. Review of Systems Constitutional: denies: Fever, Chills Cardiac: denies: Chest pain / pressure Respiratory: denies: Dyspnea GI: reports: Abdominal Pain. denies: Nausea, Vomiting, Diarrhea : denies: Dysuria, Frequency, Hematuria PD PAST MEDICAL HISTORY - Past Medical History Past Medical History: Yes Cardiovascular: High cholesterol, Coronary artery disease : Benign prostate hypertrophy - Past Surgical History Past Surgical History: Yes Cardiovascular: Coronary stent, Angioplasty, Other - Present Medications Home Medications: Ambulatory Orders Medication Instructions Recorded Confirmed Tamsulosin [Flomax] 0.4 mg PO DAILY 12/14/22 08/06/23 Aspirin [[place] Aspirin] 81 mg PO DAILY 05/06/23 08/06/23 Cyanocobalamin (Vitamin B-12) 1,000 mcg PO DAILY 05/12/23 08/06/23 [Vitamin B12] Fluocinonide 0.05% Cream [Lidex 1 applic TOP UD 05/12/23 08/06/23 0.05% Cream] Ketoconazole 2% Cream [Nizoral 2% 1 applic TOP UD 05/12/23 08/06/23 Cream] Omeprazole 40 mg PO DAILY 05/12/23 08/06/23 Ondansetron Odt [Zofran Odt] 8 mg TL Q6H PRN 05/12/23 08/06/23 Oxycodone HCl [Oxaydo] 5 mg PO PRN PRN 05/12/23 08/06/23 Triamcinolone Acetonide 0.1% 1 gm TP UD 05/12/23 08/06/23 [Triamcinolone Acetonide] Mirtazapine 15 mg PO DAILY 06/30/23 08/06/23 fentaNYL [Fentanyl 25mcg patch] 1 each TD Q3D PRN #5 patch 08/06/23 - Allergies Allergies/Adverse Reactions: Allergies Allergy/AdvReac Type Severity Reaction Status Date / Time No Known Drug Allergies Allergy Verified 08/06/23 22:34 - Social History Does the pt smoke?: No Smoking Status: Never smoker Does the pt drink ETOH?: Yes Does the pt have substance abuse?: No PD ED PE NORMAL - Vitals Vital signs reviewed: Yes - General General: Alert and oriented X 3, Other (elderly appearing) - HEENT HEENT: Atraumatic, PERRL, EOMI, Moist mucous membranes, Pharynx benign - Neck Neck: Supple, no meningeal sign - Cardiac Cardiac: RRR - Respiratory Respiratory: No respiratory distress, Clear bilaterally - Abdomen Abdomen: Other (soft, mildly distended. diffusely ttp) Results - Vitals Vitals: Vital Signs - 24 hr 08/06/23 08/06/23 22:34 23:11 Temperature 36.7 C Heart Rate 98 84 Respiratory 16 16 Rate Blood Pressure 114/60 97/64 O2 Saturation 99 100 Oxygen O2 Source Room air - Labs Labs: Laboratory Tests 08/06/23 08/06/23 08/06/23 22:59 22:59 22:59 WBC 7.7 RBC 3.16 L Hgb 9.5 L Hct 30.5 L MCV 96.5 H MCH 30.1 MCHC 31.1 L RDW 15.3 H Plt Count 232 MPV 10.7 Neut # (Auto) 6.5 Lymph # (Auto) 0.7 L [place] # (Auto) 0.5 Eos # (Auto) 0.1 Baso # (Auto) 0.0 Absolute Nucleated RBC 0.00 Nucleated RBC % 0.0 PT 12.6 INR 1.2 Sodium 137 Potassium 3.9 Chloride 106 Carbon Dioxide 23 Anion Gap 8.0 BUN 15 Creatinine 1.1 Estimated GFR (MDRD) 63 L Glucose 139 H Calcium 8.5 Total Bilirubin 1.2 H AST 21 ALT 11 Alkaline Phosphatase 129 H Total Protein 5.6 L Albumin 2.9 L Globulin 2.7 Albumin/Globulin Ratio 1.1 Lipase < 10 L PD Medical Decision Making - ED course ED course: 88yM with history of metastatic pancreatic cancer p/w persistent abdominal pain despite paracentesis for abdominal ascites yesterday. patient's pain improved with IV dilaudid. IVF provided along with CT a/p with IV contrast. cbc, abdominal panel stable without acute findings compared to previous labs. Departure - Departure Clinical Impression: Abdominal pain Condition: Stable Instructions: Abdominal Pain Prescriptions: fentaNYL [Fentanyl 25mcg patch] 1 each TD Q3D PRN #5 patch PRN Reason: Pain >8 Comments: You were seen in the emergency department for abdominal pain. Your CT uncovered no new changes and your labwork is similar to or improved from previous. Higher strength fentanyl patch was sent electronically to [facility]. Please note this is double the dose and if you experience dizziness, lightheadedness or other symptoms of concern to you then you should remove the patch and speak with your doctor or return to the ED. Please follow-up with your oncologist and return to the emergency department if you have any new or worsening symptoms or other concerns.
[2023-08-06] MEDS: SODIUM CHLORIDE 0.9% 500 ML IV STA (23:32)
[2023-08-06] MEDS: HYDROmorphone 0.5 MG/0.5 ML SYRINGE IVP STA (23:32)
[2023-08-07] MEDS: HYDROmorphone 1 MG/ML CARPUJECT IVP STA (00:37)
--- NOTE | 2023-08-07 00:58 | CT Report ---
PROCEDURE: Abdomen/Pelvis W INDICATIONS: diffuse abdominal bloating/pain CONTRAST: Omni 300, 100mls TECHNIQUE: After the administration of intravenous contrast, a CT scan of the abdomen and pelvis was performed. Images were recorded and evaluated at appropriate window settings. Reformats: coronal and sagittal. F or radiation dose reduction, the following was used: automated exposure control, adjustment of mA and /or kV according to patient size. COMPARISON: CT abdomen, 06/16/2023. CT abdomen and pelvis, 05/06/2023 FINDINGS: Image quality: Diagnostic. Lower chest: Trace pleural effusions bilaterally. Pleural nodularity, suspicious for pleural metastas is. Small hiatal hernia. Liver: No solid mass. Gallbladder and biliary tree: Gallbladder is normal. No gallstones. No biliary dilation. Spleen: No splenomegaly. Pancreas: There is a mass in the area of the pancreatic head measuring 4.8 x 7.1 cm, which is encasin g the SMV and SMA. Compared to last exam, the mass is not significantly changed in size. Adrenals: No adrenal nodule. Kidneys and ureters: No hydronephrosis. No renal cystic lesion which requires follow up. No solid mas s. Stomach, bowel and peritoneum: No bowel distension. Large ascites, new. Lymph nodes: There is mild retroperitoneal and mesenteric lymphadenopathy. For example, there is a 1. 3 x 1.7 cm mesenteric lymph node in the right side of abdomen. A cause 3 of mildly enlarged lymph nod es are seen in the left para-aortic area. Vessels: No infrarenal aortic aneurysm. PELVIS Reproductive organs: Unremarkable. Bladder: No abnormal wall thickening, accounting for underdistention. Pelvic lymph nodes: No pelvic adenopathy by size criteria. Bones: No aggressive osseous abnormality. Moderate to severe spondylitic changes. Other: No significant ventral or inguinal hernia. IMPRESSION: 1. Large mass in the pancreatic head, not significant changed since the last exam. 2. Mild retroperitoneal and mesenteric lymphadenopathy consistent with metastasis. 3. Large amount of ascites, new since the last exam. 4. Trace pleural effusions bilaterally with prominent nodularity suspicious for pleural metastasis Reviewed by: Hafsa Thornton MD on 08/07/2023 12:56 AM PDT Approved by: Hafsa Thornton MD on 08/07/2023 12:56 AM PDT Station ID: [id number]
[2023-08-07 01:08] VITALS: BP 127/64
[2023-08-07] MEDS: oxyCODONE/ACET 5/325 Prepack 4 PO STA (01:25)
[2023-08-07 01:28] VITALS: O2SAT 95
== END 2023-08-07 01:20 | disposition home or self-care (01) ==
LOC: ED 22:21
DX: R10.9 Unspecified abdominal pain (principal); C25.9 Malignant neoplasm of pancreas, unspecified; C79.89 Secondary malignant neoplasm of other specified sites
CPT/HCPCS: 36415; 74177; 80053; 83690; 85025; 85610; 96374; 96376; 99283; 99284; J1170; Q9967

== ENCOUNTER 2023-08-13 09:09 | Outpatient (CLI) | payer MEDICARE ==
[2023-08-13 14:22] LABS: BASOPHILS # (AUTO) 0.1 10^3/uL (0.0-0.1); BASOPHILS % (AUTO) 0.7 %; EOSINOPHILS # (AUTO) 0.2 10^3/uL (0.0-0.7); EOSINOPHILS % (AUTO) 2.8 %; HCT - HEMATOCRIT 32.8 % (42.0-52.0); HGB - HEMOGLOBIN 9.8 g/dL (14.0-18.0); LYMPHOCYTES # (AUTO) 0.8 10^3/uL (1.5-3.5); LYMPHOCYTES % (AUTO) 12.5 %; MEAN CORPUSCULAR HEMOGLOBIN 29.9 pg (27.0-31.0); MEAN CORPUSCULAR HGB CONC 29.9 g/dL (32.0-36.0); MEAN PLATELET VOLUME 12.1 fL (7.4-11.4); MONOCYTES # (AUTO) 0.6 10^3/uL (0.0-1.0); MONOCYTES % (AUTO) 9.2 %; NEUTROPHILS % (AUTO) 74.5 %; PLT - PLATELET COUNT 212 10^3/uL (130-450); RED BLOOD COUNT 3.28 10^6/uL (4.70-6.10); RED CELL DISTRIBUTION WIDTH 15.4 % (12.0-15.0); WHITE BLOOD COUNT 6.7 x10^3/uL (4.8-10.8)
[2023-08-13 14:49] LABS: ALBUMIN/GLOBULIN RATIO 1.1 (1.0-2.2); ALKALINE PHOSPHATASE 138 IU/L (42-121); ALT ALANINE AMINOTRANSFERASE 14 IU/L (10-60); AST ASPARTATE AMINOTRANSFERASE 25 IU/L (10-42); BILIRUBIN,TOTAL 1.1 mg/dL (0.2-1.0); BUN - BLOOD UREA NITROGEN 13 mg/dL (6-20); CALCIUM 8.6 mg/dL (8.5-10.3); CARBON DIOXIDE - CO2 27 mmol/L (21-32); CHLORIDE 104 mmol/L (101-111); CHOLESTEROL 129 mg/dL; CREATININE 0.9 mg/dL (0.6-1.3); GFR - MDRD 79 (>89); GLUCOSE 99 mg/dL (74-104); HDL CHOLESTEROL 43 mg/dL; LDL CHOLESTEROL,CALCULATED 66 mg/dL; LDL/HDL RATIO 1.5 (<3.6); POTASSIUM 4.1 mmol/L (3.5-4.5); SODIUM 136 mmol/L (135-145); THYROID STIMULATING HORMONE 5.77 uIU/mL (0.34-5.60); TOTAL PROTEIN 5.7 g/dL (6.4-8.9); TRIGLYCERIDES 101 mg/dL (48-352); VLDL CHOLESTEROL 20 mg/dL
== END 2023-08-13 09:10 | disposition home or self-care (01) ==
LOC: LAB.S 09:09
PROVIDERS: ATTEND Nurse Practitioner Gerontology
DX: K86.89 Other specified diseases of pancreas (principal); E78.5 Hyperlipidemia, unspecified; D63.8 Anemia in other chronic diseases classified elsewhere
CPT/HCPCS: 36415; 80053; 80061; 82607; 83721; 84439; 84443; 85025

== ENCOUNTER 2023-08-20 13:00 | Outpatient (CLI) | payer MEDICARE | END 2023-08-20 23:59 | disposition home or self-care (01) | LOC: PC 13:00 | PROVIDERS: ATTEND Nurse Practitioner Gerontology | DX: Z51.5 Encounter for palliative care (principal); C80.1 Malignant (primary) neoplasm, unspecified; C77.2 Secondary and unspecified malignant neoplasm of intra-abdominal lymph nodes; K86.89 Other specified diseases of pancreas; G89.3 Neoplasm related pain (acute) (chronic); R11.0 Nausea; R18.8 Other ascites; R53.83 Other fatigue; R06.02 Shortness of breath; Z79.891 Long term (current) use of opiate analgesic; Z79.899 Other long term (current) drug therapy | CPT/HCPCS: 99349 ==

== ENCOUNTER 2023-08-21 11:22 | Emergency (ER) | payer MEDICARE ==
[2023-08-21 12:28] LABS: BASOPHILS % (AUTO) 0.6 %; EOSINOPHILS # (AUTO) 0.1 10^3/uL (0.0-0.7); EOSINOPHILS % (AUTO) 1.4 %; HCT - HEMATOCRIT 33.5 % (42.0-52.0); HGB - HEMOGLOBIN 10.1 g/dL (14.0-18.0); LYMPHOCYTES # (AUTO) 0.6 10^3/uL (1.5-3.5); LYMPHOCYTES % (AUTO) 9.3 %; MEAN CORPUSCULAR HEMOGLOBIN 29.8 pg (27.0-31.0); MEAN CORPUSCULAR HGB CONC 30.1 g/dL (32.0-36.0); MEAN CORPUSCULAR VOLUME 98.8 fL (80.0-94.0); MONOCYTES # (AUTO) 0.5 10^3/uL (0.0-1.0); MONOCYTES % (AUTO) 8.3 %; NEUTROPHILS # (AUTO) 5.2 10^3/uL (1.5-6.6); NEUTROPHILS % (AUTO) 80.1 %; PLT - PLATELET COUNT 201 10^3/uL (130-450); RED BLOOD COUNT 3.39 10^6/uL (4.70-6.10); RED CELL DISTRIBUTION WIDTH 14.8 % (12.0-15.0); WHITE BLOOD COUNT 6.5 x10^3/uL (4.8-10.8)
[2023-08-21 12:55] LABS: ALBUMIN 3.1 g/dL (3.2-5.5); ALBUMIN/GLOBULIN RATIO 1.1 (1.0-2.2); ALKALINE PHOSPHATASE 143 IU/L (42-121); ALT ALANINE AMINOTRANSFERASE 14 IU/L (10-60); AST ASPARTATE AMINOTRANSFERASE 25 IU/L (10-42); BILIRUBIN,TOTAL 0.9 mg/dL (0.2-1.0); BUN - BLOOD UREA NITROGEN 15 mg/dL (6-20); CALCIUM 8.7 mg/dL (8.5-10.3); CARBON DIOXIDE - CO2 30 mmol/L (21-32); CHLORIDE 104 mmol/L (101-111); CREATININE 1.1 mg/dL (0.6-1.3); GFR - MDRD 63 (>89); GLUCOSE 111 mg/dL (74-104); LIPASE < 10 U/L (11-82); POTASSIUM 4.7 mmol/L (3.5-4.5); SODIUM 137 mmol/L (135-145); TOTAL PROTEIN 5.9 g/dL (6.4-8.9)
[2023-08-21 13:04] LABS: PARTIAL THROMBOPLASTIN TIME 28.5 secs (24.9-33.3)
[2023-08-21 13:09] LABS: PT - PROTHROMBIN TIME 11.5 secs (9.9-12.6)
--- NOTE | 2023-08-21 14:50 | ED Physician Documentation ---
History of Present Illness - Stated complaint Stated Complaint: STOMACH PX,SOA - Chief complaint Chief Complaint: Abd Pain - History obtained from History obtained from: Patient - Additonal information Additional information: Patient is an 88-year-old male presenting With a recent diagnosis of pancreatic mass presenting for increased fluid in the abdomen. Patient reports having had prior biopsies as well as a recent paracentesis and still diagnosis is unclear as to the etiology of the pancreatic mass. Patient was seen here on August 09 and had a paracentesis of 3 L. He reports that he again feels distention in his abdomen. No significant worsening of pain. No nausea or vomiting. No fevers. He is scheduled for an outpatient paracentesis on Thursday but felt like he could not wait and presented to the emergency department as he was told by his oncologist he could come to the emergency department if having difficulty in getting an outpatient paracentesis. Review of Systems Constitutional: denies: Fever Cardiac: denies: Chest pain / pressure Respiratory: denies: Dyspnea GI: denies: Abdominal Pain, Vomiting : denies: Dysuria PD PAST MEDICAL HISTORY - Past Medical History Cardiovascular: High cholesterol, Coronary artery disease : Benign prostate hypertrophy - Past Surgical History Past Surgical History: Yes Cardiovascular: Coronary stent, Angioplasty, Other - Present Medications Home Medications: Ambulatory Orders Medication Instructions Recorded Confirmed Tamsulosin [Flomax] 0.4 mg PO DAILY 12/14/22 08/21/23 Aspirin [[place] Aspirin] 81 mg PO DAILY 05/06/23 08/21/23 Cyanocobalamin (Vitamin B-12) 1,000 mcg PO DAILY 05/12/23 08/21/23 [Vitamin B12] Fluocinonide 0.05% Cream [Lidex 1 applic TOP UD 05/12/23 08/21/23 0.05% Cream] Ketoconazole 2% Cream [Nizoral 2% 1 applic TOP 05/12/23 08/21/23 Cream] Omeprazole 40 mg PO DAILY 05/12/23 08/21/23 Ondansetron Odt [Zofran Odt] 8 mg TL Q6H PRN 05/12/23 08/21/23 Triamcinolone Acetonide 0.1% 1 gm TP UD 05/12/23 08/21/23 [Triamcinolone Acetonide] Mirtazapine 15 mg PO DAILY 06/30/23 08/21/23 fentaNYL [Fentanyl 25mcg patch] 1 each TD UD 08/18/23 08/21/23 Furosemide [Lasix] 20 mg PO DAILY #3 tablet 08/21/23 - Allergies Allergies/Adverse Reactions: Allergies Allergy/AdvReac Type Severity Reaction Status Date / Time No Known Drug Allergies Allergy Verified 08/21/23 11:52 - Social History Does the pt smoke?: No Smoking Status: Never smoker Does the pt drink ETOH?: Yes Does the pt have substance abuse?: No PD ED PE NORMAL - General General: Alert and oriented X 3, No acute distress, Well developed/nourished - HEENT HEENT: Atraumatic, Moist mucous membranes, Pharynx benign - Neck Neck: Supple, no meningeal sign - Cardiac Cardiac: RRR, Strong equal pulses - Respiratory Respiratory: No respiratory distress, Clear bilaterally - Abdomen Abdomen: Normal bowel sounds, Soft, Non tender, Other (Protuberant, Not tense) - Derm Derm: Warm and dry - Extremities Extremities: Other (Mild lower extremity edema) Results - Vitals Vitals: Vital Signs - 24 hr 08/21/23 08/21/23 08/21/23 11:49 14:30 15:18 Temperature 36.4 C L 36.3 C L Heart Rate 78 82 86 Respiratory 20 18 16 Rate Blood Pressure 136/66 H 121/58 L 113/55 L O2 Saturation 98 99 100 Oxygen O2 Source Room air - Labs Labs: Laboratory Tests 08/21/23 08/21/23 08/21/23 12:21 12:21 12:21 WBC 6.5 RBC 3.39 L Hgb 10.1 L Hct 33.5 L MCV 98.8 H MCH 29.8 MCHC 30.1 L RDW 14.8 Plt Count 201 MPV 10.0 Neut # (Auto) 5.2 Lymph # (Auto) 0.6 L [place] # (Auto) 0.5 Eos # (Auto) 0.1 Baso # (Auto) 0.0 Absolute Nucleated RBC 0.00 Nucleated RBC % 0.0 PT 11.5 INR 1.0 APTT 28.5 Sodium 137 Potassium 4.7 H Chloride 104 Carbon Dioxide 30 Anion Gap 3.0 L BUN 15 Creatinine 1.1 Estimated GFR (MDRD) 63 L Glucose 111 H Calcium 8.7 Total Bilirubin 0.9 AST 25 ALT 14 Alkaline Phosphatase 143 H Total Protein 5.9 L Albumin 3.1 L Globulin 2.8 Albumin/Globulin Ratio 1.1 Lipase < 10 L PD Medical Decision Making - ED course Complexity details: reviewed results, d/w patient ED course: Patient is an 88-year-old male with a known pancreatic mass presenting for a paracentesis. He is scheduled for an outpatient one on Thursday but feels he cannot wait until then. He does not have any significant tenderness on exam. He does not have fever or other symptoms to suggest infection. He is not hypoxic and is able to lay flat without any difficulty.At this time I do not see an emergent indication for a paracentesis which I discussed with the patient. He is not currently on any diuretics so I will give him a short course of Lasix for the weekend and encouraged him to keep his outpatient paracentesis appointment for next week. He is advised on strict return precautions for any worsening symptoms and also understands he needs close follow-up with his oncologist. Departure - Departure Disposition: Home, Self Care Clinical Impression: Ascites Condition: Stable Instructions: ED Ascites Prescriptions: Furosemide [Lasix] 20 mg PO DAILY #3 tablet Comments: At this time your vitals and exam do not suggest an emergent reason to do a paracentesis. These should be scheduled with the radiology department to be performed as an outpatient unless there is an emergent need for it in which case we could do it in the emergency department. I have sent a prescription for a small amount of a diuretic (water pill) to [facility] in [place]. This may help get rid of some fluid on your body. I would also recommend close follow-up with your primary care doctor as well as your oncologist to figure out a long-term solution as the fluid will likely reaccumulate and need more casey saw operator management. Forms: PCP List Discharge Date/Time: 08/21/23 15:18
[2023-08-21 15:19] VITALS: BP 113/55; O2SAT 100
== END 2023-08-21 15:18 | disposition home or self-care (01) ==
LOC: ED 11:22
DX: R18.8 Other ascites (principal); K86.89 Other specified diseases of pancreas
CPT/HCPCS: 36415; 80053; 83690; 85025; 85610; 85730; 99283; 99284

== ENCOUNTER 2023-08-25 07:52 | Outpatient (CLI) | payer MEDICARE ==
--- NOTE | 2023-08-25 09:47 | Ultrasound Report ---
PROCEDURE: Abdominal Paracentesis INDICATIONS: MALIGNANT NEOPLASM OF PANCREAS TECHNIQUE: The indications, alternatives, benefits, risks, and complications of the procedure were explained to the patient. Written informed consent was obtained and placed in the chart. The abdomen and pelvis were examined sonographically, and an appropriate site was chosen for paracentesis. The skin was pre pared and draped in the usual sterile fashion, and 1% lidocaine was infiltrated from the skin down th rough the peritoneal surface. A 19-gauge catheter-covered needle was then introduced into the perito daisy space, the catheter was advanced and the needle was withdrawn, and thereafter peritoneal fluid w as withdrawn. The catheter was then removed and a dressing was applied. The fluid was discarded if the clinician did not order diagnostic testing of the fluid. COMPARISON: CT 08/06/2023 FINDINGS: Access site: Left lower quadrant Needle: One-Step centesis catheter with introducer needle. Fluid volume and description: Cloudy yellow, 4.7 mL Fluid sent for diagnostic testing: Yes Medications: 1% lidocaine for local anaesthesia. Complications: None. IMPRESSION: Successful ultrasound-guided paracentesis. Reviewed by: Jonathon Fernandez MD on 08/25/2023 9:46 AM PDT Approved by: Jonathon Fernandez MD on 08/25/2023 9:46 AM PDT Station ID: [id number]
== END 2023-08-25 07:53 | disposition home or self-care (01) ==
LOC: DI 07:52
PROVIDERS: ATTEND Internal Medicine Hematology & Oncology
DX: C25.9 Malignant neoplasm of pancreas, unspecified (principal); C77.2 Secondary and unspecified malignant neoplasm of intra-abdominal lymph nodes; C79.89 Secondary malignant neoplasm of other specified sites
CPT/HCPCS: 49083

== ENCOUNTER 2023-08-25 08:00 | Outpatient (CLI) | payer MEDICARE | END 2023-08-25 23:59 | disposition home or self-care (01) | LOC: PC 08:00 | PROVIDERS: ATTEND Nurse Practitioner Gerontology | DX: Z51.5 Encounter for palliative care (principal); C25.9 Malignant neoplasm of pancreas, unspecified | CPT/HCPCS: 99426; 99427 ==

== ENCOUNTER 2023-08-27 11:00 | Outpatient (CLI) | payer MEDICARE | END 2023-08-27 23:59 | disposition home or self-care (01) | LOC: PC 11:00 | PROVIDERS: ATTEND Nurse Practitioner Gerontology | DX: Z51.5 Encounter for palliative care (principal); Z87.891 Personal history of nicotine dependence; R11.0 Nausea; R10.9 Unspecified abdominal pain; K86.89 Other specified diseases of pancreas; Z65.9 Problem related to unspecified psychosocial circumstances; Z65.8 Other specified problems related to psychosocial circumstances | CPT/HCPCS: 99215 ==

== ENCOUNTER 2023-09-10 08:00 | Outpatient (CLI) | payer MEDICARE | END 2023-09-10 23:56 | disposition home or self-care (01) | LOC: PC 08:00 | PROVIDERS: ATTEND Nurse Practitioner Gerontology | DX: Z51.5 Encounter for palliative care (principal); K86.89 Other specified diseases of pancreas; R10.9 Unspecified abdominal pain; R11.0 Nausea; R63.4 Abnormal weight loss; R18.8 Other ascites; R06.09 Other forms of dyspnea; Z65.9 Problem related to unspecified psychosocial circumstances; Z71.89 Other specified counseling | CPT/HCPCS: 99215 ==

== ENCOUNTER 2023-09-10 12:49 | Outpatient (CLI) | payer MEDICARE ==
--- NOTE | 2023-09-11 21:18 | Ultrasound Report ---
PROCEDURE: Abdominal Paracentesis INDICATIONS: PANCREATIC MASS TECHNIQUE: The indications, alternatives, benefits, risks, and complications of the procedure were explained to the patient. Written informed consent was obtained and placed in the chart. The abdomen and pelvis were examined sonographically, and an appropriate site was chosen for paracentesis. The skin was pre pared and draped in the usual sterile fashion, and 1% lidocaine was infiltrated from the skin down th rough the peritoneal surface. A 19-gauge catheter-covered needle was then introduced into the perito daisy space, the catheter was advanced and the needle was withdrawn, and thereafter peritoneal fluid w as withdrawn. The catheter was then removed and a dressing was applied. The fluid was discarded if the clinician did not order diagnostic testing of the fluid. COMPARISON: Ultrasound-guided abdominal paracentesis 08/25/2023 FINDINGS: Access site: Right lower quadrant Needle: One-Step centesis catheter with introducer needle. Fluid volume and description: 4.4 L of cloudy a low fluid Fluid sent for diagnostic testing: Yes Medications: 1% lidocaine for local anaesthesia. Complications: None. IMPRESSION: Successful ultrasound-guided paracentesis. Reviewed by: Aleksandra Ambriz MD, PhD on 09/11/2023 9:16 PM PDT Approved by: Aleksandra Ambriz MD, PhD on 09/11/2023 9:16 PM PDT Station ID: [id number]
== END 2023-09-10 12:50 | disposition home or self-care (01) ==
LOC: DI 12:49
PROVIDERS: ATTEND Internal Medicine Hematology & Oncology
DX: C25.9 Malignant neoplasm of pancreas, unspecified (principal)
CPT/HCPCS: 49083

== ENCOUNTER 2023-09-15 11:28 | Outpatient (CLI) | payer MEDICARE ==
[2023-09-15 11:38] LABS: BASOPHILS % (AUTO) 0.5 %; EOSINOPHILS # (AUTO) 0.1 10^3/uL (0.0-0.7); EOSINOPHILS % (AUTO) 1.9 %; HCT - HEMATOCRIT 35.8 % (42.0-52.0); HGB - HEMOGLOBIN 10.8 g/dL (14.0-18.0); LYMPHOCYTES # (AUTO) 0.7 10^3/uL (1.5-3.5); MEAN CORPUSCULAR HEMOGLOBIN 29.7 pg (27.0-31.0); MEAN CORPUSCULAR HGB CONC 30.2 g/dL (32.0-36.0); MEAN CORPUSCULAR VOLUME 98.4 fL (80.0-94.0); MONOCYTES # (AUTO) 0.5 10^3/uL (0.0-1.0); MONOCYTES % (AUTO) 7.3 %; NEUTROPHILS # (AUTO) 5.9 10^3/uL (1.5-6.6); NEUTROPHILS % (AUTO) 80.9 %; PLT - PLATELET COUNT 230 10^3/uL (130-450); RED BLOOD COUNT 3.64 10^6/uL (4.70-6.10); RED CELL DISTRIBUTION WIDTH 13.3 % (12.0-15.0); WHITE BLOOD COUNT 7.3 x10^3/uL (4.8-10.8)
[2023-09-15 12:02] LABS: BILIRUBIN,TOTAL 0.6 mg/dL (0.2-1.0); CALCIUM 8.8 mg/dL (8.5-10.3); POTASSIUM 4.6 mmol/L (3.5-4.5); TOTAL PROTEIN 6.1 g/dL (6.4-8.9)
== END 2023-09-15 11:29 | disposition home or self-care (01) ==
LOC: LAB 11:28
PROVIDERS: ATTEND Nurse Practitioner Gerontology
DX: K86.89 Other specified diseases of pancreas (principal); D63.8 Anemia in other chronic diseases classified elsewhere
CPT/HCPCS: 36415; 80053; 85025; 86301

== ENCOUNTER 2023-09-23 08:00 | Outpatient (CLI) | payer MEDICARE | END 2023-09-23 23:59 | disposition home or self-care (01) | LOC: PC 08:00 | PROVIDERS: ATTEND Nurse Practitioner Gerontology | DX: Z51.5 Encounter for palliative care (principal); K59.03 Drug induced constipation; T40.605A Adverse effect of unspecified narcotics, initial encounter; I95.9 Hypotension, unspecified; K86.89 Other specified diseases of pancreas; R10.9 Unspecified abdominal pain | CPT/HCPCS: 99349 ==

== ENCOUNTER 2023-12-03 08:00 | Outpatient (CLI) | payer MEDICARE | END 2023-12-03 23:59 | disposition home or self-care (01) | LOC: PC 08:00 | PROVIDERS: ATTEND Nurse Practitioner Gerontology | DX: Z51.5 Encounter for palliative care (principal); K65.4 Sclerosing mesenteritis; R53.83 Other fatigue; N39.44 Nocturnal enuresis; G47.00 Insomnia, unspecified; Z79.899 Other long term (current) drug therapy; Z79.82 Long term (current) use of aspirin; Z92.241 Personal history of systemic steroid therapy; Z79.810 Long term (current) use of selective estrogen receptor modulators (SERMs); Z71.89 Other specified counseling | CPT/HCPCS: 99350 ==

== ENCOUNTER 2024-01-18 13:47 | Outpatient (CLI) | payer MEDICARE ==
[2024-01-18] MEDS ORDERED: iohexoL-300 100 ML VIAL ONE (14:11)
[2024-01-18] MEDS: iohexoL-300 100 ML VIAL IVP ONE (16:50)
[2024-01-18] MEDS: BARIUM SULFATE 450 ML ORAL.SUSP PO ONE (16:51)
--- NOTE | 2024-01-19 15:17 | CT Report ---
PROCEDURE: Abdomen/Pelvis W INDICATIONS: RETROPERITONEAL SCLEROSING MASS CONTRAST: 100ml [id number] TECHNIQUE: After the administration of intravenous contrast, a CT scan of the abdomen and pelvis was performed. Images were recorded and evaluated at appropriate window settings. Reformats: coronal and sagittal. F or radiation dose reduction, the following was used: automated exposure control, adjustment of mA and /or kV according to patient size. COMPARISON: CT abdomen/pelvis 08/06/2023, 06/16/2023 FINDINGS: Image quality: Diagnostic. Lower chest: Unremarkable. Liver: No solid mass. Gallbladder: Mildly distended gallbladder. No radiopaque gallstones. Biliary tree: Mild intrahepatic biliary ductal dilatation. Common bile but measures approximately 8 m m with abrupt cutoff at the level of the pancreatic head. A stent is seen in the ampullary region. Pr eviously seen stent within the common bile duct is no longer visualized. Spleen: No splenomegaly. Pancreas: Hypoenhancing mass again seen along the inferior aspect of the pancreas encasing the superi or mesenteric artery and vein. When compared to the CT from 08/06/2023, the mass does not appear signi ficantly changed in size or extent. The superior mesenteric artery remains patent. There is obliterat ion of the superior mesenteric vein. Dilated collateral veins are seen in the anterior abdomen. Adrenals: No adrenal nodule. Kidneys and ureters: No hydronephrosis. No renal cystic lesion which requires follow up. No solid mas s. Stable small right renal cyst. Stomach, bowel and peritoneum: No gastric or small bowel dilation. No abnormal wall thickening. Small amount of ascites, and pelvis. Lymph nodes: Mild retroperitoneal and mesenteric lymphadenopathy appears decreased when compared to [facility] CT from 08/06/2023. For example, a right mesenteric lymph node measures 0.7 cm in short axis (63) , compared to recent 1.2 cm on the prior exam. Vessels: No infrarenal aortic aneurysm. PELVIS Reproductive organs: Unremarkable. Bladder: No abnormal wall thickening, accounting for underdistention. Pelvic lymph nodes: No pelvic adenopathy by size criteria. Bones: No aggressive osseous abnormality. Other: No significant ventral or inguinal hernia. IMPRESSION: 1.Large pancreatic head mass does not appear significantly changed in size when compared to the CT fr 08/06/2023. 2.Mildly decreased size of mesenteric and retroperitoneal lymph nodes. 3.Small volume of ascites. 4.Mildly increased extrahepatic and intrahepatic biliary duct dilatation. Gallbladder is mildly diste nded. Reviewed by: Terell Burton MD on 01/19/2024 3:16 PM PDT Approved by: Terell Burton MD on 01/19/2024 3:16 PM PDT Station ID: [id number]
== END 2024-01-18 13:48 | disposition home or self-care (01) ==
LOC: LAB 13:47
PROVIDERS: ATTEND Surgery
DX: K86.89 Other specified diseases of pancreas (principal); K65.4 Sclerosing mesenteritis; R18.8 Other ascites; R63.4 Abnormal weight loss; R59.0 Localized enlarged lymph nodes; K82.8 Other specified diseases of gallbladder; K83.8 Other specified diseases of biliary tract
CPT/HCPCS: 36415; 74177; 82565; A9270; Q9967